=== PATIENT | female | born 1990 | race Caucasian/White ===

== ENCOUNTER → 2017-06-18 | Outpatient (REF) | payer BC ==
[2017-06-18 17:41] LABS: MEAN CORPUSCULAR HEMOGLOBIN 29.5 pg (27.0-33.0); MEAN CORPUSCULAR HGB CONC 33.5 g/dl (32.0-36.5); MEAN CORPUSCULAR VOLUME 88.1 fl (80.0-96.0); PLATELET COUNT, AUTOMATED 237 10^3/uL (150-450); WHITE BLOOD COUNT 7.8 10^3/uL (4.0-10.0)
[2017-06-18 18:31] LABS: HCG, SERUM QUANTITATIVE 2664 MIU/ML
[2017-06-20 11:18] LABS: HBsAg Prenatal NEGATIVE (NEGATIVE)
== END ==
LOC: M LAB REF 16:45
PROVIDERS: ATTEND Obstetrics & Gynecology
DX: O36.80X0 Pregnancy with inconclusive fetal viability, not applicable or unspecified (principal); Z3A.00 Weeks of gestation of pregnancy not specified

== ENCOUNTER → 2017-11-20 | Outpatient (CLI) | payer BC ==
[2017-11-20 08:49] LABS: HEMOGLOBIN 12.4 g/dl (12.0-15.5); MEAN CORPUSCULAR HEMOGLOBIN 31.2 pg (27.0-33.0); MEAN CORPUSCULAR HGB CONC 33.5 g/dl (32.0-36.5); PLATELET COUNT, AUTOMATED 193 10^3/uL (150-450); RED BLOOD COUNT 3.98 10^6/uL (4.00-5.40); RED CELL DISTRIBUTION WIDTH 12.4 % (11.5-14.5); WHITE BLOOD COUNT 8.5 10^3/uL (4.0-10.0)
[2017-11-20 09:33] LABS: GLUCOSE CHALLENGE TEST 1 HOUR 162 MG/DL (LESS THAN 140)
== END ==
LOC: M LAB 07:24
DX: Z34.02 Encounter for supervision of normal first pregnancy, second trimester (principal)
CPT/HCPCS: 82950

== ENCOUNTER → 2017-12-01 | Outpatient (CLI) | payer BC ==
[2017-12-01 08:05] LABS: GLUCOSE, FASTING 82 MG/DL (LESS THAN 95)
[2017-12-01 08:59] LABS: 1 HR GLUCOSE 219 MG/DL (LESS THAN 180)
[2017-12-01 10:14] LABS: 2 HR GLUCOSE 228 MG/DL (LESS THAN 155)
[2017-12-01 11:05] LABS: 3 HR GLUCOSE 159 MG/DL (LESS THAN 140)
== END ==
LOC: M LAB 07:16
DX: O99.810 Abnormal glucose complicating pregnancy (principal)
CPT/HCPCS: 82951

== ENCOUNTER → 2018-01-21 | Outpatient (REF) | payer OTHER | LOC: M LAB REF 13:13 | DX: O24.410 Gestational diabetes mellitus in pregnancy, diet controlled (principal) ==

== ENCOUNTER → 2018-02-02 | Outpatient (REF) | payer OTHER ==
[2018-02-02 16:51] LABS: HEMATOCRIT 35.5 % (36.0-47.0); HEMOGLOBIN 12.5 g/dl (12.0-15.5); MEAN CORPUSCULAR HEMOGLOBIN 31.3 pg (27.0-33.0); MEAN CORPUSCULAR HGB CONC 35.2 g/dl (32.0-36.5); PLATELET COUNT, AUTOMATED 130 10^3/uL (150-450); RED BLOOD COUNT 3.99 10^6/uL (4.00-5.40); RED CELL DISTRIBUTION WIDTH 12.4 % (11.5-14.5); WHITE BLOOD COUNT 7.4 10^3/uL (4.0-10.0)
[2018-02-02 17:38] LABS: ALT/SGPT 28 U/L (12-78); AST/SGOT 36 U/L (7-37); BILIRUBIN,TOTAL 0.6 MG/DL (0.2-1.0); CREATININE FOR GFR 0.84 MG/DL (0.55-1.30); GLOMERULAR FILTRATION RATE > 60.0 (>60); LDH LACTATE DEHYDROGENASE 262 U/L (84-246); URIC ACID 6.8 MG/DL (2.6-6.0)
== END ==
LOC: M LAB REF 16:33
DX: R03.0 Elevated blood-pressure reading, without diagnosis of hypertension (principal); O24.410 Gestational diabetes mellitus in pregnancy, diet controlled; Z3A.37 37 weeks gestation of pregnancy

== ENCOUNTER 2018-02-03 17:28 | Inpatient (IN) | payer OTHER ==
[2018-02-03 18:23] LABS: BEDSIDE GLUCOSE 70 MG/DL (70-105)
[2018-02-03] MEDS: miSOPROStol 50 MCG 1/2 TAB (S0191) PO ×2 (18:52→23:58)
[2018-02-03 19:01] LABS: ALT/SGPT 28 U/L (12-78); AST/SGOT 40 U/L (7-37); BILIRUBIN,TOTAL 0.6 MG/DL (0.2-1.0); CREATININE FOR GFR 0.75 MG/DL (0.55-1.30); GLOMERULAR FILTRATION RATE > 60.0 (>60); LDH LACTATE DEHYDROGENASE 313 U/L (84-246); URIC ACID 5.6 MG/DL (2.6-6.0)
[2018-02-03 19:45] LABS: HEMATOCRIT 35.1 % (36.0-47.0); HEMOGLOBIN 12.9 g/dl (12.0-15.5); MEAN CORPUSCULAR HEMOGLOBIN 31.4 pg (27.0-33.0); MEAN CORPUSCULAR VOLUME 85.4 fl (80.0-96.0); PLATELET COUNT, AUTOMATED 135 10^3/uL (150-450); RED BLOOD COUNT 4.11 10^6/uL (4.00-5.40); RED CELL DISTRIBUTION WIDTH 12.1 % (11.5-14.5); WHITE BLOOD COUNT 9.3 10^3/uL (4.0-10.0)
[2018-02-03 19:46] LABS: MEAN CORPUSCULAR HGB CONC 36.8 g/dl (32.0-36.5)
[2018-02-03 22:11] LABS: TOTAL PROTEIN,RANDOM URINE < 5.0 MG/DL (0.0-12.0)
[2018-02-03 22:11] LABS: CREATININE,RANDOM URINE < 13.0 MG/DL
[2018-02-04] MEDS: miSOPROStol 50 MCG 1/2 TAB (S0191) PO ×2 (04:13→08:14)
[2018-02-04 07:43] LABS: BEDSIDE GLUCOSE 91 MG/DL (70-105)
[2018-02-04 07:47] LABS: HEMATOCRIT 36.3 % (36.0-47.0); HEMOGLOBIN 13.2 g/dl (12.0-15.5); MEAN CORPUSCULAR HEMOGLOBIN 31.4 pg (27.0-33.0); MEAN CORPUSCULAR HGB CONC 36.4 g/dl (32.0-36.5); MEAN CORPUSCULAR VOLUME 86.4 fl (80.0-96.0); PLATELET COUNT, AUTOMATED 125 10^3/uL (150-450); RED CELL DISTRIBUTION WIDTH 12.3 % (11.5-14.5); WHITE BLOOD COUNT 8.5 10^3/uL (4.0-10.0)
[2018-02-04 08:08] LABS: ALT/SGPT 29 U/L (12-78); AST/SGOT 42 U/L (7-37); BILIRUBIN,TOTAL 0.9 MG/DL (0.2-1.0); CREATININE FOR GFR 0.76 MG/DL (0.55-1.30); GLOMERULAR FILTRATION RATE > 60.0 (>60); LDH LACTATE DEHYDROGENASE 280 U/L (84-246); URIC ACID 5.9 MG/DL (2.6-6.0)
[2018-02-04] MEDS: OXYTOCIN DRIP 30 UNITS in APPROPRIATE DILUENT 1 EA IV (12:16)
[2018-02-04] MEDS: LR 1,000 ML IV ×2 (14:05→14:48)
[2018-02-04] MEDS ORDERED: FENTANYL 2MCG/ML ROPIVACAINE 0.2% IN 0.9% NACL 200ML IVBAG As Ordered (14:19)
[2018-02-04 15:28] LABS: BEDSIDE GLUCOSE 107 MG/DL (70-105)
[2018-02-04 15:45] LABS: HEMOGLOBIN 14.6 g/dl (12.0-15.5); MEAN CORPUSCULAR HEMOGLOBIN 31.6 pg (27.0-33.0); MEAN CORPUSCULAR VOLUME 84.4 fl (80.0-96.0); PLATELET COUNT, AUTOMATED 157 10^3/uL (150-450); RED BLOOD COUNT 4.62 10^6/uL (4.00-5.40); RED CELL DISTRIBUTION WIDTH 12.4 % (11.5-14.5); WHITE BLOOD COUNT 13.9 10^3/uL (4.0-10.0)
[2018-02-04 15:58] LABS: ALT/SGPT 29 U/L (12-78); AST/SGOT 41 U/L (7-37); GLOMERULAR FILTRATION RATE > 60.0 (>60); LDH LACTATE DEHYDROGENASE 302 U/L (84-246); URIC ACID 5.9 MG/DL (2.6-6.0)
[2018-02-04] MEDS ORDERED: EPIDURAL/PCA KEYS XX (16:15)
[2018-02-04] MEDS ORDERED: EPIDURAL COMMENT XX (16:15)
[2018-02-04] MEDS ORDERED: LACTATED RINGER'S 1000 ML IV (16:15)
[2018-02-04] MEDS ORDERED: ePHEDrine SULFATE 25 MG/5 ML(5MG/ML) SYRINGE IV (16:15)
[2018-02-04] MEDS ORDERED: NALOXONE INJ 0.4 MG/1 ML VIAL (J2310) IV (16:15)
[2018-02-04] MEDS ORDERED: ONDANSETRON 4MG/2ML VIAL (J2405) IV (16:15)
[2018-02-04] MEDS ORDERED: diphenhydrAMINE INJ 50MG/ML VIAL (J1200) IV (16:15)
[2018-02-04] MEDS ORDERED: FENTANYL/ROPIVACAINE/NACL BAG 200 ML EPIDURAL (16:15)
[2018-02-04] MEDS ORDERED: REFRIGERATOR IV KEYS XX (16:15)
[2018-02-04 16:33] LABS: MEAN CORPUSCULAR HGB CONC 37.4 g/dl (32.0-36.5)
[2018-02-04] MEDS ORDERED: METHYLERGONOVINE MALEATE 0.2 MG TAB PO (16:45)
[2018-02-04] MEDS ORDERED: RHOGAM 300 MCG (1500 IU) INJ (J2790) IM (16:45)
[2018-02-04] MEDS ORDERED: MEASLES,MUMPS,RUBELLA VACCINE INJ (MMR-II) (90707) SC (16:45)
[2018-02-04] MEDS ORDERED: ACETAMINOPHEN 500 MG TAB PO (16:45)
[2018-02-04] MEDS ORDERED: DOCUSATE SODIUM 100 MG CAP PO (16:45)
[2018-02-04] MEDS ORDERED: DIBUCAINE 1% OINTMENT 30GM TOP (16:45)
[2018-02-04 16:58] LABS: CORD GAS ABE A -10.3; CORD GAS HCO3 A 19.2 MEQ/L; CORD GAS O2 SAT A 16.4 %; CORD GAS PCO2 A 56.6 mmHg; CORD GAS PH A 7.148 UNITS; CORD GAS PO2 A 13.3 mmHg; CORD GAS SBC A 14.7 MEQ/L; CORD GAS TCO2 A 20.9 MEQ/L
[2018-02-04 17:00] LABS: CORD GAS ABE V -7.8; CORD GAS O2 SAT V 43.2 %; CORD GAS PCO2 V 38.4 mmHg; CORD GAS PO2 V 20.2 mmHg; CORD GAS TCO2 V 19.2 MEQ/L
[2018-02-04] MEDS: IBUPROFEN 800 MG TAB PO (18:46)
[2018-02-05] MEDS: IBUPROFEN 800 MG TAB PO ×3 (03:22→20:13)
[2018-02-05 07:04] LABS: MEAN CORPUSCULAR HEMOGLOBIN 31.8 pg (27.0-33.0); MEAN CORPUSCULAR HGB CONC 36.8 g/dl (32.0-36.5); MEAN CORPUSCULAR VOLUME 86.5 fl (80.0-96.0); PLATELET COUNT, AUTOMATED 127 10^3/uL (150-450); RED BLOOD COUNT 3.93 10^6/uL (4.00-5.40); RED CELL DISTRIBUTION WIDTH 12.9 % (11.5-14.5); WHITE BLOOD COUNT 15.3 10^3/uL (4.0-10.0)
[2018-02-05 07:13] LABS: HEMOGLOBIN 12.5 g/dl (12.0-15.5)
[2018-02-05 07:29] LABS: ALT/SGPT 28 U/L (12-78); AST/SGOT 49 U/L (7-37); BILIRUBIN,TOTAL 0.5 MG/DL (0.2-1.0); CREATININE FOR GFR 0.88 MG/DL (0.55-1.30); GLOMERULAR FILTRATION RATE > 60.0 (>60); LDH LACTATE DEHYDROGENASE 328 U/L (84-246); URIC ACID 5.8 MG/DL (2.6-6.0)
[2018-02-05] MEDS: PRENATAL VITAMINS CHEWABLE TABLET PO (09:09)
[2018-02-06] MEDS: PRENATAL VITAMINS CHEWABLE TABLET PO (08:15)
[2018-02-06] MEDS: IBUPROFEN 800 MG TAB PO (08:15)
== END 2018-02-06 16:02 | disposition home or self-care (01) | DRG 775 ==
LOC: M LDI 17:28 → M OBS 02-04 19:22
PROVIDERS: Advanced Practice Midwife
PROC: 3E033VJ Introduction of Other Hormone into Peripheral Vein, Percutaneous Approach (ICD-10-PCS; 2018-02-03)
PROC: 10E0XZZ Delivery of Products of Conception, External Approach (ICD-10-PCS; principal; 2018-02-04)
PROC: 0HQ9XZZ Repair Perineum Skin, External Approach (ICD-10-PCS; 2018-02-04)
PROC: 10D07Z6 Extraction of Products of Conception, Vacuum, Via Natural or Artificial Opening (ICD-10-PCS; 2018-02-04)
DX: O14.24 HELLP syndrome, complicating childbirth (principal); Z37.0 Single live birth; Z3A.37 37 weeks gestation of pregnancy; Z91.040 Latex allergy status; Z88.8 Allergy status to other drugs, medicaments and biological substances; O69.82X0 Labor and delivery complicated by other cord entanglement, without compression, not applicable or unspecified; O70.0 First degree perineal laceration during delivery

== ENCOUNTER → 2018-02-03 | Outpatient (REF) | payer OTHER ==
[2018-02-03 16:29] LABS: CREATININE, URINE < 13.0 MG/DL; URINE TOTAL PROTEIN < 5.0 MG/DL (0-12)
[2018-02-03 19:39] LABS: CREATININE 24 HOUR, URINE 591.5 MG/24HR (600-1800); TOTAL VOLUME, URINE 4550 ML
== END ==
LOC: M LAB REF 15:54
DX: O24.410 Gestational diabetes mellitus in pregnancy, diet controlled (principal); R03.0 Elevated blood-pressure reading, without diagnosis of hypertension; Z3A.37 37 weeks gestation of pregnancy

== ENCOUNTER → 2018-04-01 | Outpatient (CLI) | payer OTHER ==
[2018-04-01 08:44] LABS: GLUCOSE, FASTING 82 MG/DL (70-100)
[2018-04-01 09:56] LABS: 1 HR GLUCOSE 106 MG/DL (LESS THAN 199)
[2018-04-01 09:56] LABS: 2 HR GLUCOSE 61 MG/DL (LESS THAN 140)
== END ==
LOC: M LAB 07:06
DX: Z86.32 Personal history of gestational diabetes (principal)

== ENCOUNTER → 2019-05-03 | Outpatient (REF) | payer OTHER ==
[~2019-05-03] MED LIST: IBUP-1114 PO; MAPA500T2 PO; PRENTAB9 PO
[2019-05-03 13:24] LABS: BASO % 0.4 % (0.0-1.0); EOS % 0.8 % (0.0-3.0); HEMATOCRIT 42.2 % (36.0-47.0); HEMOGLOBIN 13.9 g/dl (12.0-15.5); LYMPH # 1.9 10^3/uL (1.5-5.0); LYMPH % 38.5 % (24.0-44.0); MEAN CORPUSCULAR HGB CONC 32.9 g/dl (32.0-36.5); MONO # 0.5 10^3/uL (0.0-0.8); MONO % 9.7 % (0.0-5.0); NEUTROPHILS # 2.5 10^3/uL (1.5-8.5); NEUTROPHILS % 50.4 % (36.0-66.0); PLATELET COUNT, AUTOMATED 199 10^3/uL (150-450); RED BLOOD COUNT 4.49 10^6/uL (4.00-5.40)
[2019-05-03 13:42] LABS: ALBUMIN 4.1 GM/DL (3.2-5.2); ALT/SGPT 24 U/L (12-78); BLOOD UREA NITROGEN 12 MG/DL (7-18); C REACTIVE PROTEIN QUANTITATIV < 0.30 MG/DL (0.00-0.30); CALCIUM LEVEL 9.2 MG/DL (8.5-10.1); CARBON DIOXIDE LEVEL 27 MEQ/L (21-32); CHLORIDE LEVEL 103 MEQ/L (98-107); CREATININE FOR GFR 0.76 MG/DL (0.55-1.30); FREE T4 1.04 NG/DL (0.76-1.46); GLOMERULAR FILTRATION RATE > 60.0 (>60); GLUCOSE, FASTING 83 MG/DL (70-100); POTASSIUM SERUM 3.8 MEQ/L (3.5-5.1); SODIUM LEVEL 137 MEQ/L (136-145); TOTAL PROTEIN 7.4 GM/DL (6.4-8.2)
[2019-05-03 14:04] LABS: ERYTHROCYTE SEDIMENTATION RATE 3 mm/hr (0-20)
[2019-05-05 00:06] LABS: Lyme Disease IgG/IgM Antibodie <0.91 ISR (0.00-0.90); Lyme Disease IgM Ab Quantitati <0.80 index (0.00-0.79)
== END ==
LOC: M LABDRWAD 12:47
PROVIDERS: ATTEND Physician Assistant Medical
DX: L65.9 Nonscarring hair loss, unspecified (principal); R42 Dizziness and giddiness; R53.83 Other fatigue

== ENCOUNTER → 2019-05-26 | Outpatient (CLI) | payer OTHER ==
[2019-05-26 11:01] LABS: HEMATOCRIT 44.9 % (36.0-47.0); HEMOGLOBIN 14.5 g/dl (12.0-15.5); MEAN CORPUSCULAR HEMOGLOBIN 30.3 pg (27.0-33.0); MEAN CORPUSCULAR HGB CONC 32.3 g/dl (32.0-36.5); MEAN CORPUSCULAR VOLUME 93.9 fl (80.0-96.0); PLATELET COUNT, AUTOMATED 214 10^3/uL (150-450); RED BLOOD COUNT 4.78 10^6/uL (4.00-5.40); WHITE BLOOD COUNT 4.7 10^3/uL (4.0-10.0)
[2019-05-26 11:39] LABS: FOLATE 23.7 NG/ML; TOTAL 25(OH) VITAMIN D 47.1 NG/ML (30.0-100.0)
== END ==
LOC: M SMT 09:01
PROVIDERS: ATTEND Advanced Practice Midwife
DX: L65.9 Nonscarring hair loss, unspecified (principal); N92.0 Excessive and frequent menstruation with regular cycle

== ENCOUNTER → 2020-12-28 | Outpatient (REF) | payer OTHER | LOC: M SFHCWAGY 18:36 | PROVIDERS: ATTEND Advanced Practice Midwife | DX: Z12.4 Encounter for screening for malignant neoplasm of cervix (principal) | CPT/HCPCS: 87624; G0123 ==

== ENCOUNTER → 2021-03-12 | Outpatient (CLI) | payer OTHER | LOC: M PLALAB 08:03 | PROVIDERS: ATTEND Advanced Practice Midwife | DX: Z34.90 Encounter for supervision of normal pregnancy, unspecified, unspecified trimester (principal); Z3A.00 Weeks of gestation of pregnancy not specified ==

== ENCOUNTER → 2021-03-14 | Outpatient (CLI) | payer OTHER ==
[2021-03-15 14:03] LABS: APPEARANCE, URINE CLEAR (CLEAR); BACTERIA, URINE AUTO 1+ (NEGATIVE); BILIRUBIN, URINE AUTO NEGATIVE (NEGATIVE); BLOOD, URINE BLOOD NEGATIVE (NEGATIVE); COLOR, URINE COLORLESS (YELLOW); GLUCOSE, URINE (UA) AUTO NEGATIVE (NEGATIVE); KETONE, URINE AUTO NEGATIVE (NEGATIVE); LEUKOCYTE ESTERASE, URINE AUTO NEGATIVE (NEGATIVE); NITRITE, URINE AUTO NEGATIVE (NEGATIVE); PROTEIN, URINE AUTO NEGATIVE (NEGATIVE); RBC, URINE AUTO 0 /HPF (0-3); SPECIFIC GRAVITY URINE AUTO 1.001 (1.002-1.035); SQUAMOUS EPITHELIAL CELL UR AU 1 /HPF (0-6); UROBILINOGEN, URINE AUTO 0.2 mg/dL (0.0-2.0); WBC, URINE AUTO 0 /HPF (0-3)
== END ==
LOC: M PLALAB 08:02
PROVIDERS: ATTEND Advanced Practice Midwife
DX: Z34.90 Encounter for supervision of normal pregnancy, unspecified, unspecified trimester (principal); R39.89 Other symptoms and signs involving the genitourinary system

== ENCOUNTER → 2021-03-15 | Outpatient (CLI) | payer OTHER ==
--- NOTE | 2021-03-15 13:54 | REP ---
INDICATION: VIABILITY. COMPARISON: None. TECHNIQUE: Transabdominal obstetric sonography. FINDINGS: Scanning through the gravid uterus demonstrates a viable single intrauterine gestation in free-floating lie. cardiac motion is observed and heart rate is recorded at 126 beats per minute. There is a subchorionic fluid collection consistent with a hemorrhage adjacent to the gestational sac measuring 1.4 x 1.0 x 0.6 cm. [place]-rump length of the embryonic pole is 8 mm. This corresponds with a 6 week 5 day gestational age estimate. A 1.1 cm cystic areas seen in the maternal left ovary consistent with corpus luteum. IMPRESSION: Viable single intrauterine gestation at 6 weeks 5 days by today's composite sonographic criteria. MYA by today's sonography November 03, 2021. There is a small subchorionic fluid collection consistent with subchorionic hemorrhage. <Electronically signed by Dennis Rodriguez > 03/15/21 0786
== END ==
LOC: M WHC 09:30
PROVIDERS: ATTEND Advanced Practice Midwife
DX: O36.80X0 Pregnancy with inconclusive fetal viability, not applicable or unspecified (principal); O02.81 Inappropriate change in quantitative human chorionic gonadotropin (hCG) in early pregnancy

== ENCOUNTER → 2021-04-11 | Outpatient (CLI) | payer OTHER ==
[2021-04-11 11:01] LABS: HEMATOCRIT 40.3 % (36.0-47.0); HEMOGLOBIN 13.6 g/dl (12.0-15.5); MEAN CORPUSCULAR HEMOGLOBIN 30.2 pg (27.0-33.0); MEAN CORPUSCULAR HGB CONC 33.7 g/dl (32.0-36.5); MEAN CORPUSCULAR VOLUME 89.4 fl (80.0-96.0); PLATELET COUNT, AUTOMATED 193 10^3/uL (150-450); RED BLOOD COUNT 4.51 10^6/uL (4.00-5.40); WHITE BLOOD COUNT 6.5 10^3/uL (4.0-10.0)
[2021-04-11 12:17] LABS: HEPATITIS C VIRUS ABY INDEX 0.1 INDEX (<0.8); HIV 1&2 SCREEN CENTAUR NEGATIVE (NEGATIVE)
[2021-04-11 12:44] LABS: GC DNA AMPLIFICATION NEGATIVE (NEGATIVE)
== END ==
LOC: M PLALAB 09:01
PROVIDERS: ATTEND Advanced Practice Midwife
DX: O09.291 Supervision of pregnancy with other poor reproductive or obstetric history, first trimester (principal); Z3A.00 Weeks of gestation of pregnancy not specified

== ENCOUNTER → 2021-05-08 | Outpatient (CLI) | payer OTHER ==
[2021-05-08 13:55] LABS: ALT/SGPT 18 U/L (12-78); BILIRUBIN,TOTAL 1.2 MG/DL (0.2-1.0); CREATININE FOR GFR 0.45 MG/DL (0.55-1.30); GLOMERULAR FILTRATION RATE > 60.0 (>60); GLUCOSE CHALLENGE TEST 1 HOUR 117 MG/DL (LESS THAN 140); LDH LACTATE DEHYDROGENASE 185 U/L (84-246); URIC ACID 2.5 MG/DL (2.6-6.0)
[2021-05-08 15:20] LABS: CREATININE,RANDOM URINE < 13.0 MG/DL; TOTAL PROTEIN,RANDOM URINE < 5.0 MG/DL (0.0-12.0)
== END ==
LOC: M PLALAB 08:14
PROVIDERS: ATTEND Advanced Practice Midwife
DX: O09.292 Supervision of pregnancy with other poor reproductive or obstetric history, second trimester (principal); Z3A.00 Weeks of gestation of pregnancy not specified

== ENCOUNTER → 2021-06-12 | Outpatient (CLI) | payer OTHER | LOC: M WHC 08:02 | PROVIDERS: ATTEND Advanced Practice Midwife | DX: O09.292 Supervision of pregnancy with other poor reproductive or obstetric history, second trimester (principal); Z3A.19 19 weeks gestation of pregnancy ==

== ENCOUNTER → 2021-06-22 | Outpatient (CLI) | payer OTHER | LOC: M WHC 14:20 | PROVIDERS: ATTEND Advanced Practice Midwife | DX: O09.292 Supervision of pregnancy with other poor reproductive or obstetric history, second trimester (principal); Z3A.20 20 weeks gestation of pregnancy ==

== ENCOUNTER → 2021-08-13 | Outpatient (CLI) | payer OTHER ==
[2021-08-13 10:42] LABS: HEMATOCRIT 39.9 % (36.0-47.0); HEMOGLOBIN 13.4 g/dl (12.0-15.5); MEAN CORPUSCULAR HGB CONC 33.6 g/dl (32.0-36.5); MEAN CORPUSCULAR VOLUME 92.4 fl (80.0-96.0); PLATELET COUNT, AUTOMATED 175 10^3/uL (150-450); RED BLOOD COUNT 4.32 10^6/uL (4.00-5.40); WHITE BLOOD COUNT 8.5 10^3/uL (4.0-10.0)
== END ==
LOC: M PLALAB 07:47
PROVIDERS: ATTEND Advanced Practice Midwife
DX: O09.292 Supervision of pregnancy with other poor reproductive or obstetric history, second trimester (principal); Z3A.00 Weeks of gestation of pregnancy not specified

== ENCOUNTER → 2021-10-11 | Outpatient (REF) | payer OTHER | LOC: M PLALAB 15:11 | PROVIDERS: ATTEND Advanced Practice Midwife | DX: Z53.9 Procedure and treatment not carried out, unspecified reason (principal) ==

== ENCOUNTER → 2021-10-12 | Outpatient (REF) | payer OTHER | LOC: M SFHCWAGY 12:57 | PROVIDERS: ATTEND Advanced Practice Midwife | DX: Z36.85 Encounter for antenatal screening for Streptococcus B (principal) ==

== ENCOUNTER 2021-10-21 01:17 | Inpatient (IN) | payer OTHER ==
[~2021-10-21] VITALS: Ht 160 cm; Wt 67.9 kg
[2021-10-21] VITALS (12 sets, daily range): BP systolic 129–152; BP diastolic 62–94
[2021-10-21] MEDS ORDERED: TRANEXAMIC ACID INJection 1,000 MG in NS 100 ML IV PRN (02:25)
[2021-10-21] MEDS ORDERED: LACTATED RINGER'S 1000 ML IV PRN (02:25)
[2021-10-21] MEDS ORDERED: METHYLERGONOVINE MALEATE 0.2 MG/ML VIAL (J2210) IM PRN (02:25)
[2021-10-21] MEDS ORDERED: OXYTOCIN DRIP 30 UNITS in IV 1 EA IV PRN ×4 (02:25)
[2021-10-21] MEDS ORDERED: LIDOCAINE 1% MDV 20ML VIAL INFIL PRN (02:25)
[2021-10-21] MEDS ORDERED: CARBOPROST TROMETHAMINE 250 MCG/ML AMP IM PRN (02:25)
[2021-10-21] MEDS ORDERED: ECOT81TA5 PO (02:40)
[2021-10-21 02:53] LABS: MEAN CORPUSCULAR HEMOGLOBIN 31.9 pg (27.0-33.0); MEAN CORPUSCULAR HGB CONC 35.9 g/dl (32.0-36.5); MEAN CORPUSCULAR VOLUME 88.8 fl (80.0-96.0); PLATELET COUNT, AUTOMATED 172 10^3/uL (150-450); RED BLOOD COUNT 4.39 10^6/uL (4.00-5.40); WHITE BLOOD COUNT 8.6 10^3/uL (4.0-10.0)
[2021-10-21] MEDS ORDERED: METHYLERGONOVINE MALEATE 0.2 MG TAB PO PRN (06:05)
[2021-10-21] MEDS ORDERED: MEASLES,MUMPS,RUBELLA VACCINE INJ (MMR-II) (90707) SC SCH (06:05)
[2021-10-21] MEDS ORDERED: RHOGAM 300 MCG (1500 IU) INJ (J2790) IM SCH (06:05)
[2021-10-21] MEDS ORDERED: DOCUSATE SODIUM 100MG CAPSULE PO PRN (06:05)
[2021-10-21] MEDS ORDERED: ACETAMINOPHEN 500 MG TAB PO PRN (06:05)
[2021-10-21] MEDS ORDERED: DIBUCAINE 1% OINTMENT 30GM TOP PRN (06:05)
[2021-10-21] MEDS: IBUPROFEN 600MG TAB PO PRN ×3 (06:18→21:17)
[2021-10-21] MEDS: PRENATAL VITAMINS CHEWABLE TABLET PO SCH (13:14)
[2021-10-22 06:10] VITALS: BP 125/88
[2021-10-22] MEDS: IBUPROFEN 600MG TAB PO PRN ×2 (06:16→15:32)
[2021-10-22 08:45] LABS: HEMATOCRIT 36.5 % (36.0-47.0); HEMOGLOBIN 12.5 g/dl (12.0-15.5); MEAN CORPUSCULAR HEMOGLOBIN 31.6 pg (27.0-33.0); MEAN CORPUSCULAR HGB CONC 34.2 g/dl (32.0-36.5); MEAN CORPUSCULAR VOLUME 92.4 fl (80.0-96.0); PLATELET COUNT, AUTOMATED 132 10^3/uL (150-450); RED BLOOD COUNT 3.95 10^6/uL (4.00-5.40); WHITE BLOOD COUNT 9.7 10^3/uL (4.0-10.0)
[2021-10-22] MEDS: PRENATAL VITAMINS CHEWABLE TABLET PO SCH (09:36)
== END 2021-10-22 18:30 | disposition home or self-care (01) | DRG 807 ==
LOC: M LDO 01:17 → M LDI 02:19 → M OBS 10:25
PROVIDERS: ADMIT Obstetrics & Gynecology; ATTEND Obstetrics & Gynecology
PROC: 10E0XZZ Delivery of Products of Conception, External Approach (ICD-10-PCS; principal; 2021-10-21)
DX: O42.02 Full-term premature rupture of membranes, onset of labor within 24 hours of rupture (principal); Z37.0 Single live birth; Z3A.38 38 weeks gestation of pregnancy; Z91.040 Latex allergy status; Z88.8 Allergy status to other drugs, medicaments and biological substances

== ENCOUNTER → 2023-03-31 | Outpatient (CLI) | payer BC ==
[~2023-03-31] MED LIST changes: +ECOT81TA5 PO
== END ==
LOC: M PLALAB 08:59
PROVIDERS: ATTEND Advanced Practice Midwife
DX: Z34.90 Encounter for supervision of normal pregnancy, unspecified, unspecified trimester (principal); Z3A.00 Weeks of gestation of pregnancy not specified

== ENCOUNTER → 2023-04-03 | Outpatient (CLI) | payer BC | LOC: M PLALAB 09:33 | PROVIDERS: ATTEND Advanced Practice Midwife | DX: Z36.9 Encounter for antenatal screening, unspecified (principal) ==

== ENCOUNTER → 2023-05-06 | Outpatient (CLI) | payer BC ==
[2023-05-06 14:01] LABS: LDH LACTATE DEHYDROGENASE 191 U/L (120-246)
[2023-05-06 14:02] LABS: ALT/SGPT 18 U/L (7.0-40); AST/SGOT 19 U/L (<34); BILIRUBIN,TOTAL 1.9 MG/DL (0.3-1.2); CREATININE FOR GFR 0.56 MG/DL (0.55-1.30); GLOMERULAR FILTRATION RATE > 60.0 (>60)
[2023-05-06 14:03] LABS: URIC ACID 3.2 MG/DL (3.1-7.8)
[2023-05-06 14:11] LABS: HEMATOCRIT 42.1 % (36.0-47.0); HEMOGLOBIN 14.1 g/dl (12.0-15.5); MEAN CORPUSCULAR HEMOGLOBIN 30.6 pg (27.0-33.0); MEAN CORPUSCULAR HGB CONC 33.5 g/dl (32.0-36.5); MEAN CORPUSCULAR VOLUME 91.3 fl (80.0-96.0); PLATELET COUNT, AUTOMATED 199 10^3/uL (150-450); RED BLOOD COUNT 4.61 10^6/uL (4.00-5.40); WHITE BLOOD COUNT 7.8 10^3/uL (4.0-10.0)
[2023-05-06 14:31] LABS: HIV 1&2 SCREEN NEGATIVE (NEGATIVE)
[2023-05-06 14:35] LABS: CREATININE,RANDOM URINE < 13.0 MG/DL
[2023-05-06 14:38] LABS: TOTAL PROTEIN,RANDOM URINE < 6.0 MG/DL (0.0-14.0)
[2023-05-06 14:39] LABS: HEPATITIS C VIRUS ABY INDEX 0.04 INDEX (<0.8)
[2023-05-06 16:00] LABS: GC DNA AMPLIFICATION NEGATIVE (NEGATIVE)
== END ==
LOC: M PLALAB 09:40
PROVIDERS: ATTEND Advanced Practice Midwife
DX: O09.299 Supervision of pregnancy with other poor reproductive or obstetric history, unspecified trimester (principal); Z3A.00 Weeks of gestation of pregnancy not specified

== ENCOUNTER → 2023-06-27 | Outpatient (CLI) | payer BC | LOC: M WHC 08:08 | PROVIDERS: ATTEND Advanced Practice Midwife | DX: Z34.92 Encounter for supervision of normal pregnancy, unspecified, second trimester (principal) ==

== ENCOUNTER → 2023-07-28 | Outpatient (CLI) | payer BC | LOC: M WHC 08:07 | PROVIDERS: ATTEND Advanced Practice Midwife | DX: O09.292 Supervision of pregnancy with other poor reproductive or obstetric history, second trimester (principal) ==

== ENCOUNTER → 2023-08-19 | Outpatient (CLI) | payer BC ==
[2023-08-19 14:18] LABS: HEMATOCRIT 38.3 % (36.0-47.0); HEMOGLOBIN 12.5 g/dl (12.0-15.5); MEAN CORPUSCULAR HEMOGLOBIN 31.4 pg (27.0-33.0); MEAN CORPUSCULAR HGB CONC 32.6 g/dl (32.0-36.5); MEAN CORPUSCULAR VOLUME 96.2 fl (80.0-96.0); PLATELET COUNT, AUTOMATED 178 10^3/uL (150-450); RED BLOOD COUNT 3.98 10^6/uL (4.00-5.40); WHITE BLOOD COUNT 8.9 10^3/uL (4.0-10.0)
[2023-08-19 14:24] LABS: THYROID STIMULATING HORMONE 1.568 uIU/ML (0.55-4.78)
[2023-08-19 14:26] LABS: FERRITIN 19.8 NG/ML (7.3-270.7); FREE T4 1.11 NG/DL (0.89-1.76)
== END ==
LOC: M PLALAB 08:44
PROVIDERS: ATTEND Advanced Practice Midwife
DX: O09.292 Supervision of pregnancy with other poor reproductive or obstetric history, second trimester (principal); Z3A.00 Weeks of gestation of pregnancy not specified

== ENCOUNTER → 2023-08-28 | Outpatient (CLI) | payer BC | LOC: M WHC 09:47 | PROVIDERS: ATTEND Advanced Practice Midwife | DX: O09.292 Supervision of pregnancy with other poor reproductive or obstetric history, second trimester (principal) ==

== ENCOUNTER → 2023-10-24 | Outpatient (REF) | payer BC | LOC: M SFHCWAGY 10:35 | PROVIDERS: ATTEND Advanced Practice Midwife | DX: O09.293 Supervision of pregnancy with other poor reproductive or obstetric history, third trimester (principal) ==

== ENCOUNTER 2023-11-03 13:25 | Inpatient (IN) | payer BC ==
[2023-11-03] VITALS (8 sets, daily range): BP systolic 115–137; BP diastolic 56–80; O2SAT 100
[~2023-11-03] VITALS: Ht 160 cm; Wt 67.3 kg
[2023-11-03] MEDS ORDERED: OXYTOCIN INJ 10UNITS/ML 1ML VIAL IM PRN (13:35)
[2023-11-03] MEDS ORDERED: TRANEXAMIC ACID INJection 1,000 MG in NS 100 ML IV PRN (13:35)
[2023-11-03] MEDS ORDERED: METHYLERGONOVINE MALEATE 0.2MG/ML 1ML VIAL IM PRN (13:35)
[2023-11-03] MEDS ORDERED: LIDOCAINE 1% MDV 20ML VIAL INFIL PRN (13:35)
[2023-11-03] MEDS ORDERED: CARBOPROST TROMETHAMINE 250 MCG/ML AMP IM PRN (13:35)
[2023-11-03] MEDS ORDERED: ASPI81CH33 PO (13:43)
[2023-11-03 14:18] LABS: HEMOGLOBIN 14.7 g/dl (12.0-15.5); MEAN CORPUSCULAR HEMOGLOBIN 32.7 pg (27.0-33.0); MEAN CORPUSCULAR VOLUME 93.3 fl (80.0-96.0); PLATELET COUNT, AUTOMATED 168 10^3/uL (150-450); WHITE BLOOD COUNT 10.7 10^3/uL (4.0-10.0)
[2023-11-03] MEDS: OXYTOCIN DRIP 30 UNITS in IV 1 EA IV PRN (15:27)
[2023-11-03] MEDS ORDERED: MOM 30ML SUSPENSION UDC PO PRN (15:45)
[2023-11-03] MEDS ORDERED: ANUSOL HC CREAM 30GM TOP PRN (15:45)
[2023-11-03] MEDS ORDERED: DOCUSATE SODIUM 100MG CAPSULE PO PRN (15:45)
[2023-11-03] MEDS ORDERED: ACETAMINOPHEN TAB 650MG DOSE (2X325MG) PO PRN (15:45)
[2023-11-03] MEDS ORDERED: ONDANSETRON 4MG 2ML VIAL IV PRN (15:45)
[2023-11-03] MEDS ORDERED: RHO(D) IMMUNE GLOBULIN/MALTOSE 500MCG(2500IU)/2.2ML VIAL (WINRHO) IM SCH (15:45)
[2023-11-03] MEDS ORDERED: IBUPROFEN 600MG TAB PO PRN (15:45)
[2023-11-03] MEDS ORDERED: DIBUCAINE 1% OINTMENT 30GM TOP PRN (15:45)
[2023-11-03] MEDS: IBUPROFEN 800 MG TAB PO PRN (15:53)
[2023-11-03] MEDS: ACETAMINOPHEN 500 MG TAB PO PRN (22:32)
[2023-11-04 06:04] VITALS: BP 110/65; O2SAT 99
[2023-11-04] MEDS: PRENATAL VITAMINS CHEWABLE TABLET PO SCH (08:00)
[2023-11-05] MEDS ORDERED: MEASLES,MUMPS,RUBELLA VACCINE INJ (MMR-II) SC.IMMUN ONE (09:00)
== END 2023-11-04 13:35 | disposition home or self-care (01) | DRG 560 ==
LOC: M LDI 13:25 → M OBS 17:12
PROVIDERS: ADMIT Advanced Practice Midwife; ATTEND Advanced Practice Midwife
PROC: 10E0XZZ Delivery of Products of Conception, External Approach (ICD-10-PCS; principal; 2023-11-03)
DX: O80 Encounter for full-term uncomplicated delivery (principal); Z37.0 Single live birth; Z3A.37 37 weeks gestation of pregnancy; Z91.040 Latex allergy status; Z88.8 Allergy status to other drugs, medicaments and biological substances

== ENCOUNTER → 2025-03-03 | Outpatient (CLI) | payer OTHER ==
[~2025-03-03] MED LIST changes: +ASPI81CH33 PO
== END ==
LOC: M WHC 12:27
PROVIDERS: ATTEND Advanced Practice Midwife
DX: O20.9 Hemorrhage in early pregnancy, unspecified (principal); Z3A.09 9 weeks gestation of pregnancy

== ENCOUNTER → 2025-04-06 | Outpatient (CLI) | payer OTHER ==
[2025-04-06 16:59] LABS: PLATELET COUNT, AUTOMATED 200 10^3/uL (150-450)
[2025-04-06 17:01] LABS: LDH LACTATE DEHYDROGENASE 187 U/L (120-246)
[2025-04-06 17:02] LABS: ALT/SGPT 17 U/L (7.0-40); AST/SGOT 19 U/L (<34); CREATININE FOR GFR 0.58 MG/DL (0.55-1.30); GLOMERULAR FILTRATION RATE > 90.0 (>60)
[2025-04-06 17:19] LABS: TOTAL PROTEIN,RANDOM URINE < 6.0 MG/DL (0.0-14.0)
[2025-04-06 17:51] LABS: Trichomonas vaginalis (AMP) NOT DETECTED (NEGATIVE)
[2025-04-06 18:03] LABS: HIV 1&2 SCREEN NEGATIVE (NEGATIVE)
[2025-04-06 18:11] LABS: HEPATITIS C VIRUS ABY INDEX < 0.02 INDEX (<0.8)
[2025-04-06 18:14] LABS: GC DNA AMPLIFICATION NEGATIVE (NEGATIVE)
== END ==
LOC: M PLALAB 08:09
PROVIDERS: ATTEND Advanced Practice Midwife
DX: O09.291 Supervision of pregnancy with other poor reproductive or obstetric history, first trimester (principal); Z3A.00 Weeks of gestation of pregnancy not specified; Z36.89 Encounter for other specified antenatal screening

== ENCOUNTER → 2025-05-16 | Outpatient (CLI) | payer OTHER | LOC: M WHC 09:02 | PROVIDERS: ATTEND Advanced Practice Midwife | DX: O09.292 Supervision of pregnancy with other poor reproductive or obstetric history, second trimester (principal); Z3A.20 20 weeks gestation of pregnancy ==

== ENCOUNTER → 2025-05-27 | Outpatient (REF) | payer OTHER | LOC: M SFHCWAGY 13:10 | PROVIDERS: ATTEND Advanced Practice Midwife | DX: R39.9 Unspecified symptoms and signs involving the genitourinary system (principal) ==

== ENCOUNTER → 2025-06-21 | Outpatient (CLI) | payer OTHER | LOC: M WHC 09:59 | PROVIDERS: ATTEND Advanced Practice Midwife | DX: O09.292 Supervision of pregnancy with other poor reproductive or obstetric history, second trimester (principal) ==

== ENCOUNTER → 2025-07-01 | Outpatient (CLI) | payer OTHER ==
[2025-07-01 13:51] LABS: PLATELET COUNT, AUTOMATED 223 10^3/uL (150-450)
[2025-07-01 14:17] LABS: GLUCOSE CHALLENGE TEST 1 HOUR 141 MG/DL (LESS THAN 140)
[2025-07-01 14:47] LABS: HIV 1&2 SCREEN NEGATIVE (NEGATIVE)
[2025-07-01 14:55] LABS: HEPATITIS C VIRUS ABY INDEX 0.05 INDEX (<0.8)
== END ==
LOC: M PLALAB 09:56
PROVIDERS: ATTEND Advanced Practice Midwife
DX: O09.292 Supervision of pregnancy with other poor reproductive or obstetric history, second trimester (principal)